=== PATIENT | male | born 1980 ===

== ENCOUNTER 2020-11-28 17:01 | Inpatient (IN) | payer OTHER ==
[~2020-11-28] VITALS: Ht 180.3 cm; Wt 146.0 kg
[2020-11-28 18:46] LABS: Basophils # (auto) 0 10 ^3/uL (0-0.2); Basophils % (auto) 0.6 % (0.0-2.0); Eosinophils # (auto) 0 10 ^3/uL (0-0.8); Eosinophils % (auto) 0.1 % (0.0-7.0); Hematocrit 45.2 % (41.0-53.0); Hemoglobin 15.5 g/dL (13.5-17.5); Lymphocytes # (auto) 1.3 10 ^3/uL (0.4-5.4); Lymphocytes % (auto) 17.4 % (10.0-50.0); Mean Corpuscular Hemoglobin 29.9 pg (28.0-32.0); Mean Corpuscular Hgb Conc. 34.3 g/dL (32.0-36.0); Monocytes # (auto) 0.5 10 ^3/uL (0-1.3); Monocytes % (auto) 6.9 % (0.0-12.0); Neutrophils # (auto) 5.6 10 ^3/uL (1.6-8.6); Nucleated Red Blood Cells % 0.1 %; Red Cell Distribution Width 14.6 % (11.8-14.3); White Blood Cell 7.5 10^3/uL (4.4-10.8)
[2020-11-28 18:53] LABS: Alanine Aminotransferase 30 U/L (16-61); Albumin 3.6 g/dL (3.4-5.0); Anion Gap 3 (5-15); Aspartate Aminotransferase 23 U/L (15-37); Blood Urea Nitrogen 11 mg/dL (7-18); Calcium 8.5 mg/dL (8.5-10.1); Carbon Dioxide 26 mmol/L (21-32); Chloride 110 mmol/L (98-107); Glucose 124 mg/dL (74-106); Potassium 3.9 mmol/L (3.5-5.1); Sodium 139 mmol/L (136-145)
[2020-11-28 18:57] LABS: Alkaline Phosphatase 87 U/L (45-117); BUN/Creatinine Ratio 14.1; Bilirubin, Total 1.1 mg/dL (0.2-1.0); GFR African American 140 mL/min; GFR Non-African American 116 mL/min; Total Protein 6.8 g/dL (6.4-8.2)
[2020-11-28] MEDS ORDERED: NITROGLYCERIN 0.4 MG SL TAB SL PRN (23:30)
[2020-11-28] MEDS ORDERED: METOPROLOL TARTRATE 1MG/1ML-5ML VIAL IV PRN (23:30)
[2020-11-28] MEDS ORDERED: HYDROcodone-ACET 5/325MG TAB PO PRN (23:30)
[2020-11-28] MEDS ORDERED: HYDROmorphone HCL 2 MG/ML VL IV PRN (23:30)
[2020-11-28] MEDS ORDERED: ONDANSETRON HCL 4 MG/2 ML VIAL IV PRN (23:30)
[2020-11-28] MEDS ORDERED: ACETAMINOPHEN 325 MG TAB PO PRN (23:30)
[2020-11-29] MEDS ORDERED: ACETAMINOPHEN 325 MG TAB PO PRN (02:00)
[2020-11-29] MEDS ORDERED: NITROGLYCERIN 0.4 MG SL TAB SL PRN (02:00)
[2020-11-29] MEDS ORDERED: METOPROLOL TARTRATE 1MG/1ML-5ML VIAL IV PRN (02:00)
[2020-11-29] MEDS ORDERED: HYDROmorphone HCL 2 MG/ML VL IV PRN (02:00)
[2020-11-29] MEDS ORDERED: ONDANSETRON HCL 4 MG/2 ML VIAL IV PRN (02:00)
[2020-11-29] MEDS ORDERED: HYDROcodone-ACET 5/325MG TAB PO PRN (02:00)
[2020-11-29] MEDS ORDERED: PANTOPRAZOLE 40 MG/10 ML VIAL INJ IV SCH (10:00)
[2020-11-29] MEDS ORDERED: METOPROLOL TARTRATE 25 MG TAB PO SCH (10:00)
[2020-11-29] MEDS: METOPROLOL TARTRATE 25 MG TAB PO SCH ×2 (12:00→21:16)
[2020-11-29] MEDS: PANTOPRAZOLE 40 MG TAB PO SCH ×2 (12:50→21:18)
[2020-11-29] MEDS ORDERED: LISI20TA28 PO (18:42)
[2020-11-29] MEDS ORDERED: SULF500T37 PO (18:42)
[2020-11-29] MEDS ORDERED: METF-370 PO (18:42)
[2020-11-29] MEDS ORDERED: VERA120T3 PO (18:42)
[2020-11-29] MEDS ORDERED: ASPI-543 PO (18:42)
[2020-11-29] MEDS ORDERED: SIMV-13 PO (18:42)
[2020-11-29 18:45] VITALS: BP 133/86
[2020-11-29 22:00] VITALS: BP 121/77
[2020-11-30 05:00] VITALS: BP 104/60
[2020-11-30 06:58] LABS: Basophils # (auto) 0 10 ^3/uL (0-0.2); Basophils % (auto) 0.4 % (0.0-2.0); Eosinophils # (auto) 0.1 10 ^3/uL (0-0.8); Eosinophils % (auto) 2.3 % (0.0-7.0); Hematocrit 45.7 % (41.0-53.0); Hemoglobin 15.9 g/dL (13.5-17.5); Lymphocytes # (auto) 1.8 10 ^3/uL (0.4-5.4); Lymphocytes % (auto) 30.4 % (10.0-50.0); Mean Corpuscular Hemoglobin 30.6 pg (28.0-32.0); Mean Corpuscular Hgb Conc. 34.9 g/dL (32.0-36.0); Mean Corpuscular Volume 87.7 fL (80.0-100.0); Monocytes # (auto) 0.7 10 ^3/uL (0-1.3); Monocytes % (auto) 11.3 % (0.0-12.0); Neutrophils # (auto) 3.3 10 ^3/uL (1.6-8.6); Neutrophils % (auto) 55.6 % (37.0-80.0); Nucleated Red Blood Cells % 0.1 %; Red Blood Cells 5.21 10^6/uL (4.5-5.90); Red Cell Distribution Width 14.7 % (11.8-14.3); White Blood Cell 5.9 10^3/uL (4.4-10.8)
[2020-11-30 07:18] LABS: Albumin 3.4 g/dL (3.4-5.0); Calcium 8.4 mg/dL (8.5-10.1)
[2020-11-30 07:24] LABS: Bilirubin, Total 1.2 mg/dL (0.2-1.0); Total Protein 6.5 g/dL (6.4-8.2)
[2020-11-30 09:00] VITALS: BP 126/75
[2020-11-30] MEDS: METOPROLOL TARTRATE 25 MG TAB PO SCH ×2 (09:54→22:00)
[2020-11-30] MEDS: PANTOPRAZOLE 40 MG TAB PO SCH ×2 (10:00→23:17)
[2020-11-30] MEDS ORDERED: ADENOSINE 125 MG in GIVE UN-DILUTED 0 ML IV STA (11:22)
[2020-11-30 13:00] VITALS: BP 120/74
[2020-11-30 17:00] VITALS: BP 123/70
[2020-11-30 22:00] VITALS: BP 131/79
[2020-12-01 05:00] VITALS: BP 127/72
[2020-12-01 09:00] VITALS: BP 137/86
[2020-12-01] MEDS: PANTOPRAZOLE 40 MG TAB PO SCH ×2 (11:01→22:35)
[2020-12-01] MEDS: METOPROLOL TARTRATE 25 MG TAB PO SCH ×2 (11:01→22:00)
[2020-12-01 13:00] VITALS: BP 127/76
[2020-12-01 17:00] VITALS: BP 119/67
[2020-12-01 22:00] VITALS: BP 133/85
[2020-12-02 05:00] VITALS: BP 117/73
[2020-12-02 09:05] VITALS: BP 125/66
[2020-12-02] MEDS: METOPROLOL TARTRATE 25 MG TAB PO SCH (10:00)
[2020-12-02] MEDS: PANTOPRAZOLE 40 MG TAB PO SCH (10:00)
[2020-12-02 11:00] VITALS: BP 127/76
== END 2020-12-02 13:50 | DRG 310 ==
LOC: ER 17:01 → EEVIPCON 17:01 → EDBD 17:01 → TELE 23:19 → TELE-WESTW 11-29 18:30
PROVIDERS: ADMIT Specialist; ATTEND Specialist
DX: I48.91 Unspecified atrial fibrillation (principal); I10 Essential (primary) hypertension; Z20.822 Contact with and (suspected) exposure to COVID-19
CPT/HCPCS: 36415; 71045; 71046; 71275; 80053; 83036; 84443; 84484; 85025; 85379; 87426; 93005; 93017; 93306; G0378; J0153